=== PATIENT | female | born 1995 | race Caucasian/White ===

== ENCOUNTER 2019-10-01 12:49 | Outpatient (CLI) | payer OTHER, SELFPAY ==
--- NOTE | ~2019-10-01 | US_ITS ---
EXAMINATION: US OB /maternal detail DATE: 10/01/2019 14:08 INDICATION: Second trimester anatomic survey TECHNIQUE: Real-time ultrasound of the pelvis was performed. COMPARISON: None. FINDINGS: There is a single living fetus in variable presentation. The placenta is anterior. heart rate i s 149 beats per minute (bpm). cardiac activity and movement are noted. The amniotic fluid index is subjectively normal. The following anatomy was identified as normal: 4 chamber heart 3 vessel cord cord insertion kidneys urinary bladder stomach spine diaphragm ventricles cisterna magna cerebellum The following biometric data were obtained: Biparietal diameter (BPD): 5.1 cm; head circumference (HC): 18.7 cm; abdominal circumference (AC): 15 .6 cm; femur length (FL): 3.2 cm. These measurements are concordant. Estimated weight is 366 g +/- 55 g, which correlates with the 57th percentile when 02/15/2020 is used as estimated date of delivery. As single measurements, these parameters are each equal to the following estimated gestational ages w ith ranges of +/- 2 standard deviations: BPD: 21 weeks 4 days +/- 1 weeks 5 days. HC: 21 weeks 1 days +/- 1 weeks 3 days. AC: 20 weeks 5 days +/- 2 weeks 0 days. FL: 20 weeks 2 days +/- 1 weeks 6 days. estimated gestational age based solely on measurements from this exam is 21 weeks 0 days +/- 1 weeks 3 days. IMPRESSION: 1. Single living fetus in variable presentation. 2. Estimated weight is 366 g +/- 55 g, which correlates with the 57th percentile when 02/15/2020 is used as estimated date of delivery. Reviewed, dictated and finalized at location A. IMPRESSION: 1. Single living fetus in variable presentation. 2. Estimated weight is 366 g +/- 55 g, which correlates with the 57th per centile when 02/15/2020 is used as estimated date of delivery.
== END 2019-10-01 12:50 | disposition home or self-care (01) ==
PROVIDERS: Visit Provider Obstetrics & Gynecology
DX: Z36.9 Encounter for antenatal screening, unspecified (principal); Z3A.21 21 weeks gestation of pregnancy
CPT/HCPCS: 76805

== ENCOUNTER 2019-12-11 15:26 | Outpatient (CLI) | payer OTHER, SELFPAY ==
[2019-12-11 17:02] LABS: Hematocrit 30.9 % (37.0-47.0); Hemoglobin 10.5 g/dL (12.0-15.0)
[2019-12-11 17:13] LABS: Glucose 1 Hour PP 50gm Dose 127 mg/dL
[2019-12-11 17:48] LABS: Vitamin D 25 Hydroxy 51.4 ng/mL
[2019-12-11 17:54] LABS: HIV 1/2 Ab P24 Ag Result Negative (Negative)
[2019-12-12] MEDS: RHO(D) IMMUNE GLOBULIN 300 MCG SYRINGE IM (17:00)
== END 2019-12-11 15:27 | disposition home or self-care (01) ==
LOC: ANHLAB 15:28
PROVIDERS: PCP Obstetrics & Gynecology; Visit Provider Obstetrics & Gynecology
DX: Z34.92 Encounter for supervision of normal pregnancy, unspecified, second trimester (principal); Z3A.00 Weeks of gestation of pregnancy not specified
CPT/HCPCS: 36415; 82306; 82947; 85014; 85018; 85461; 86703; 90384; 96372; G0432; J2790

== ENCOUNTER 2020-02-07 11:48 | Outpatient (CLI) | payer OTHER, SELFPAY ==
[2020-02-07 12:18] LABS: Hematocrit 35.1 % (37.0-47.0); Hemoglobin 12.2 g/dL (12.0-15.0); Mean Corpuscular HGB Conc 34.8 g/dl (32-36); Mean Corpuscular Hemoglobin 32.3 pg (26-34); Mean Corpuscular Volume 92.9 fl (80-100); Mean Platelet Volume 11.2 fl (7.4-10.4); Platelet Count Result 158 k/mm3 (150-375); Red Blood Count 3.78 M/mm3 (4.2-5.4); Red Cell Distribution Width 15.4 % (11.5-14.5); White Blood Count 7.2 K/mm3 (4.5-10.0)
[2020-02-08 22:14] LABS: Rapid Plasma Reagin Non-Reactive (NonReactive)
== END 2020-02-07 11:49 | disposition home or self-care (01) ==
PROVIDERS: Visit Provider Obstetrics & Gynecology
DX: Z01.812 Encounter for preprocedural laboratory examination (principal); O34.218 Maternal care for other type scar from previous cesarean delivery; Z3A.39 39 weeks gestation of pregnancy
CPT/HCPCS: 36415; 85027; 86592; 86850; 86880; 86900; 86901; 86902

== ENCOUNTER 2020-02-09 05:45 | Inpatient (IN) | payer OTHER, SELFPAY ==
[2020-02-09] VITALS (43 sets, daily range): BP systolic 102–143; BP diastolic 57–120; PULSE 49–152; RESP 18; TEMP 36.1–36.7; O2SAT 96–100; BMI 26.4
[2020-02-09] MEDS: LACTATED RINGERS 1,000 ML 125 ML IV CONT (06:25)
--- NOTE | 2020-02-09 06:27 | LDADM ---
This patient, Sandra Paredes, was admitted to Labor/Delivery/Recovery 120 on 02/09/20 at 05:45. Plans for repeat section, pain management and were discussed with patient. Patient/family oriented to hospital policies and general routines including ID bracelet, bed and alarms, visiting hours, pain management, procedures, bathroom and other care routines, personal items, smoking policy, room service/diet and guest tray routines, infant security routines, and visiting hours. Patient/Family are encouraged to report perceived risks to care and to ask questions if they do not understand what they are told or what they should do. See OBIX for further documentation.
--- NOTE | 2020-02-09 07:12 | WPDANESEPPF ---
Anes - Initial Pre Proc Eval Procedure: Operation Date: 02/09/20 07:30 Proposed Procedures p Repeat Section - Nancy Lyons MD Date/Time: 02/09/20 07:12 Surgeon: Pancho Fournier MD Pre Op Diagnosis: C/S Patient Data Age: 24 Gender: F Height: 5 ft 4 in Weight: 70 kg Last Vital Signs Pulse 152 H 02/09/20 06:15 BP 114/85 02/09/20 06:15 Allergies Allergy/AdvReac Type Severity Reaction Status Date / Time No Known Allergies Allergy Verified 01/22/20 14:31 Home Medications Medication Instructions Recorded Confirmed Type PNV cmb#95-ferrous fumarate-FA 1 tablet PO DAILY 01/22/20 02/09/20 History [] Patient hx anesthesia problems: none Family hx anesthesia problems: none PMFSH Family History Family History Other No pertinent family history Social History Social History Smoking status: Former smoker Substance use: never Spiritual care concerns: No Anes - Eval Final PreProcedure Day of Procedure 02/09/20 07:12 Patient weight: overweight Heart: regular rate and rhythm Lungs: clear to auscultation Airway: Mallampati scale class II Neurological: alert and oriented Last oral intake: >/= 8 hours ASA classification: II Emergent: no Anesthetic plan: proceed Anesthesia type and monitoring: regional spinal and standard monitoring Informed Consent: The patient's anesthetic plan and its attendant risks and benefits were discussed with the patient/family/POA. Questions were solicited and answers provided to the satisfaction of the patient/family/POA.
[2020-02-09] MEDS: ONDANSETRON INJ 4 MG/2 ML VIAL IV PUSH (07:25)
[2020-02-09] MEDS: FAMOTIDINE 20 MG/2 ML VIAL IV PUSH (07:25)
--- NOTE | 2020-02-09 07:26 | P.HP_ITS ---
H&P: HPI History of Present Illness Date/Time: 02/09/20 07:26 Chief complaint: C/S Narrative: Sandra Paredes is a 24 year old female at 39 wks for repeat csection. has been uncomplicated. labs: A-, RPR-, HIV-, Rubella nonimmune, HBSAg -, GBS -. [facility] Surgical History Surgical History (Updated 02/09/20 @ 07:30 by Nancy Lyons MD) History of Family History Family History (Updated 02/09/20 @ 07:28 by Nancy Lyons MD) Grandparent Diabetes mellitus Father Cerebrovascular accident Other No pertinent family history Social History Social History Smoking status: Former smoker Substance use: never Spiritual care concerns: No Meds Home Medications and Allergies Home Medications Medication Instructions Recorded Confirmed Type PNV cmb#95-ferrous fumarate-FA 1 tablet PO DAILY 01/22/20 02/09/20 History [] Allergies Allergy/AdvReac Type Severity Reaction Status Date / Time No Known Allergies Allergy Verified 01/22/20 14:31 Vital Signs Vital Signs - 24 hr 02/09/20 06:15 Pulse Rate 152 H Blood Pressure 114/85 Exam Const: General: comfortable and no acute distress Resp: Effort & Inspection: normal respiratory effort Auscultation: clear to auscultation bilaterally Cardio: Rate: regular rate Rhythm: regular rhythm GI: GI Palp: No Tenderness to palpation present (GI) and Yes Other GI palpation findings present (gravid with FH 41 cm) Assessment and Plan Assessment and plan (1) 39 weeks gestation of : Code(s): Z3A.39 - 39 weeks gestation of Status: Acute Assessment and Plan: Plan to proceed with repeat LTCS
[2020-02-09] MEDS: ceFAZolin 2 GM/D5W 50 ML 2 GM/50 ML BAG IVPB (07:30)
--- NOTE | 2020-02-09 07:35 | WPDHPUPDATE1 ---
History and Physical Update Update Date/Time: 02/09/20 07:35 History and Physical has been reviewed, including an updated exam of the patient. There are NO changes in the patient's condition. Risks, benefits, and alternatives have been discussed and questions answered. Patient agrees to proceed with procedure.
--- NOTE | 2020-02-09 08:39 | P.OP_ITS ---
Procedure Note - Detailed Date of procedure: 02/09/20 Pre-op diagnosis: C/S Post-op diagnosis: same Procedure performed: repeat LTCS Description of procedure: The patient is taken to the operating room and placed in the dorsal supine position with a leftward tilt. Once anesthesia was deemed adequate a Pfannenstiel skin incision is made with the scalpel. Incision is carried down to the fascia which was nicked in the midline. The incision is extended laterally using Rios scissors. Ochsner was used to tent the fascia which was then dissected off using sharp dissection due to adhesions. The rectus muscles are in the midline, the peritoneum was tented, and the peritoneum was entered using Metzenbaum scissors. The incision is extended with blunt traction. The bladder blade is placed the lower uterine segment was incised above the previous bladder flap in a transverse fashion with the scalpel. Once the amniotic cavity is entered membranes are ruptured. Clear fluid is noted. The incision is extended laterally using blunt traction. The 's head is delivered through the incision while the assistant professor of anthropology applied fundal pressure. Nuchal cord x1 is reduced. The remainder of the infant is delivered. The cord is clamped and cut and the infant handed to the waiting nursery nurse. The placenta is removed using manual traction after cord blood is taken. The uterus is cleared of all clots and debris and exteriorized. The uterine incision was closed using 0 Monocryl in a running locked fashion, imbricating layer is used with same suture, and hemostasis was obtained using 2 additional [id number] sutures. The cul-de-sac is irrigated and the uterus is returned to the abdomen. The gutters are irrigated. The incision was again inspected and noted to be hemostatic. The fascia was closed using 0 Vicryl in a running fashion. The subcutaneous tissues are irrigated and made hemostatic using Bovie cautery. Skin incisions closed using Tom Vicryl in a subcuticular fashion. Dermaflex was placed over the incision. Sponge,instrument, and needle counts are correct per OR staff. Anesthesia: spinal Surgeon: Nancy Lyons MD Estimated blood loss (mL): 770 Drains: Yes (irwin) Packing: No Pathology: none sent Complications: No immediate complications Condition: stable Disposition: PACU Findings: female 8#1oz; 9/9 scores; normal appearing tubes, ovaries, and uterus
--- NOTE | 2020-02-09 08:45 | PM.OBDSVD ---
DS: Admitting Diagnosis Admitting Diagnosis Admitting Diagnosis: previous C/S declining trial of labor IUP 39 wks DS: Discharge Diagnosis Discharge Diagnosis (1) delivery delivered: Code(s): O82 - Encounter for delivery without indication Status: Acute (2) History of : Code(s): Z98.891 - History of uterine scar from previous surgery Status: Acute (3) 39 weeks gestation of : Code(s): Z3A.39 - 39 weeks gestation of Status: Acute OB - DS: Summary OB Procedures : Ultrasound OB Procedures Intrapartum: low cervical, transverse OB Procedures: : None Peripartum Data Delivery Method: Section Procedures: Procedures Operation Date: 02/09/20 07:30 <No data on this case meets the specified criteria> complications: none Status at Discharge Functional status at discharge: independent ambulation Overall status at discharge: patient is progressing back to baseline Time Spent with Patient Time attestation: Total time spent providing and/or coordinating discharge services: Discharge Plan Discharge Attending physician on discharge: Nancy Lyons Discharging Clinician: Nancy Lyons Anticipated Discharge Date/Time: 02/11/20 07:34 Patient Disposition: Home, Self-Care Activity: may shower, may drive after 2 weeks and pelvic rest Diet: regular Patient Instructions: Antibiotic Form Stand Alone Forms: General Discharge Information Follow-up/Referrals: Nancy Lyons MD [Physician] - 1 Week Discharge Medications: New hydrocodone-acetaminophen 5-325 mg Tablet 1 tab PO Q3H PRN (Reason: Moderate Pain (4-6)) Qty: 30 RF: 0 Continued PNV cmb#95-ferrous fumarate-FA [] 28 mg iron- 800 mcg Tablet 1 tablet PO DAILY RF: 0 Date of admission: 02/09/20 05:45 Primary Care Provider: PHYSICIAN,PRODUCTION MANAGER Admitting Provider: Pancho Fournier Attending physician on admission: Pancho Fournier Condition: Stable
[2020-02-09] MEDS: OXYTOCIN 30 UNITS/NS 500 ML 30 UNITS/500 ML BAG 125 UNITS IV CONT (08:50)
[2020-02-09] MEDS: DEXTROSE 5%/0.45% SOD CHL 1,000 ML 125 ML IV CONT (13:16)
[2020-02-09] MEDS: SIMETHICONE 80 MG TAB.CHEW PO (15:05)
[2020-02-09] MEDS: HYDROcodone/acetaminophen (*CRX) 10-325 MG TABLET 1 TAB PO (15:05)
[2020-02-09] MEDS: HYDROcodone/acetaminophen (*CRX) 5-325 MG TABLET 1 TAB PO (21:01)
[2020-02-10 00:15] VITALS: BP 107/67; PULSE 77; RESP 17; TEMP 36.8; O2SAT 99
[2020-02-10] MEDS: HYDROcodone/acetaminophen (*CRX) 5-325 MG TABLET 1 TAB PO ×4 (00:43→20:59)
[2020-02-10 04:38] VITALS: BP 114/73; PULSE 71; RESP 16; TEMP 36.6; O2SAT 99
[2020-02-10 05:05] LABS: Basophils Percent Auto 0.3 % (0.2-1.2); Eosinophils Absolute Auto 0.1 K/mm3 (0-0.3); Eosinophils Percent Auto 1.1 % (0-4.4); Hematocrit 27.8 % (37.0-47.0); Hemoglobin 9.4 g/dL (12.0-15.0); Immature Granulocyte Absolute 0.04 K/mm3 (0.00-0.031); Immature Granulocyte Percent A 0.5 % (0-0.5); Lymphocytes Absolute Auto 1.83 K/mm3 (0.9-3.2); Lymphocytes Percent Auto 24.2 % (18.3-44.2); Mean Corpuscular HGB Conc 33.8 g/dl (32-36); Mean Corpuscular Hemoglobin 31.9 pg (26-34); Mean Corpuscular Volume 94.2 fl (80-100); Mean Platelet Volume 10.9 fl (7.4-10.4); Monocytes Absolute Auto 0.7 K/mm3 (0.1-0.6); Neutrophils Absolute Auto 4.9 K/mm3 (1.3-6.7); Neutrophils Percent Auto 64.9 % (45.5-73.1); Platelet Count Result 107 k/mm3 (150-375); Red Blood Count 2.95 M/mm3 (4.2-5.4); Red Cell Distribution Width 15.5 % (11.5-14.5); White Blood Count 7.6 K/mm3 (4.5-10.0)
--- NOTE | 2020-02-10 05:35 | PC.NURSE ---
Found infant, mother, and father all asleep in bed. Spoke with parents about importance of not cosleeping, dangers associated with cosleeping, and placing baby in crib to sleep. Mother verbalizes understanding and desire to avoid cosleeping.
[2020-02-10] MEDS: DOCUSATE SODIUM 100 MG CAPSULE PO ×3 (07:18→16:55)
[2020-02-10] MEDS: SIMETHICONE 80 MG TAB.CHEW PO ×3 (07:19→13:57)
[2020-02-10] MEDS: IBUPROFEN 600 MG TABLET PO ×3 (07:19→20:58)
--- NOTE | 2020-02-10 07:44 | P.PNOB_ITS ---
OB - PN: Subj Subjective Date/time seen: 02/10/20 07:44 Patient comments: no complaints baby status: doing well OB - PN: Obj Data Labs CBC & Chem 7: 02/10/20 04:32 Labs: Laboratory Results - last 24 hr 02/10/20 02/10/20 04:32 04:32 WBC 7.6 RBC 2.95 L Hgb 9.4 L Hct 27.8 L MCV 94.2 MCH 31.9 MCHC 33.8 RDW 15.5 H Plt Count 107 L MPV 10.9 H Immature Gran % (Auto) 0.5 Neut % (Auto) 64.9 Lymph % (Auto) 24.2 [place] % (Auto) 9.0 H Eos % (Auto) 1.1 Baso % (Auto) 0.3 Lymph # (Auto) 1.83 [place] # (Auto) 0.7 H Eos # (Auto) 0.1 Baso # (Auto) 0.0 Abs Immat Gran (auto) 0.04 H Absolute Neuts (auto) 4.9 Absolute Nucleated RBC 0.0 Nucleated RBC % 0.0 Blood Type A Negative Antibody Screen TNP Screen Negative Baby's Blood Type A pos Baby's ANITA Negative Doses of RhIg Required 1 OB - PN A/P Plan day: 1 Plan: routine care Time Spent With Patient Time: Total time spent is greater than 50% in coordination of care (as documented) at patient's floor/unit and/or counseling patient: Exam GI: Inspection: incision (c/d/i) : Bimanual exam- vagina & uterus: other (Uterus firm, nt @U)
--- NOTE | 2020-02-10 07:52 | WPDANLDPN2 ---
Anes-Prog Note L&D Date/Time: 02/10/20 07:52 Comfortable throughout: section Neuraxial method: spinal Epidural/Spinal procedure site: clean & non-tender Neuro status: Neuro function grossly intact. Cardiovascular status: normal Respiratory status: normal Airway patency: baseline Mental status: baseline Post-Op hydration status: normal Vital Signs: Last Vital Signs Temp 36.6 C 02/10/20 04:38 Pulse 71 02/10/20 04:38 Resp 16 02/10/20 04:38 BP 114/73 02/10/20 04:38 Pulse Ox 99 02/10/20 04:38 Pain score (VAS): 0 I/O: Intake & Output 02/09/20 02/09/20 02/10/20 15:59 23:59 07:59 Intake Total 150 Output Total 191 269 7470 Balance -30 200 -1325 Post-procedural complaints: none Patient feedback: Patient satisfied with anesthetic care.
[2020-02-10 08:05] VITALS: BP 118/68; PULSE 80; RESP 18; TEMP 36.2; O2SAT 98
[2020-02-10] MEDS: POLYSACCHARIDE IRON COMPLEX 150 MG CAPSULE PO ×3 (08:18→16:55)
[2020-02-10] MEDS: HYDROcodone/acetaminophen (*CRX) 10-325 MG TABLET 1 TAB PO ×2 (11:09→16:55)
[2020-02-10] MEDS: RHO(D) IMMUNE GLOBULIN 300 MCG SYRINGE IM (16:54)
[2020-02-10 20:50] VITALS: BP 124/71; PULSE 72; RESP 16; TEMP 36.5; O2SAT 99
[2020-02-11] MEDS: IBUPROFEN 600 MG TABLET PO ×2 (05:26→12:03)
[2020-02-11] MEDS: HYDROcodone/acetaminophen (*CRX) 10-325 MG TABLET 1 TAB PO ×3 (05:27→12:03)
--- NOTE | 2020-02-11 07:33 | P.PNOB_ITS ---
OB - PN: Subj Subjective Date/time seen: 02/11/20 07:33 Patient comments: no complaints, incisional pain and tolerating diet [place] baby status: doing well OB - PN: Obj Data Labs CBC & Chem 7: 02/10/20 04:32 Labs: Laboratory Results - last 24 hr 02/10/20 04:32 Blood Type A Negative Antibody Screen TNP Screen Negative Baby's Blood Type A pos Baby's ANITA Negative Doses of RhIg Required 1 OB - PN A/P Plan day: 2 Plan: routine care, discharge home and other (plans Depoprovera) Time Spent With Patient Time: Total time spent is greater than 50% in coordination of care (as documented) at patient's floor/unit and/or counseling patient: Exam Narrative: Exam Narrative: inc c/d/i : Bimanual exam- vagina & uterus: other (Uterus firm, nt @U)
[2020-02-11 08:00] VITALS: BP 122/88; PULSE 95; RESP 16; RESP 18; TEMP 36.5; O2SAT 99
[2020-02-11] MEDS: POLYSACCHARIDE IRON COMPLEX 150 MG CAPSULE PO (09:09)
[2020-02-11] MEDS: DOCUSATE SODIUM 100 MG CAPSULE PO (09:09)
[2020-02-11] MEDS: SIMETHICONE 80 MG TAB.CHEW PO (09:09)
[2020-02-11] MEDS: medroxyPROGESTERone ACETATE IM 150 MG/ML SYR IM (11:48)
[2020-02-11] MEDS: MEASLES,MUMPS,RUBELLA VACCINE 0.5 ML VIAL SUB-Q (11:55)
[2020-02-12 08:33] VITALS: BP 131/80; PULSE 82; RESP 20; TEMP 36.9; O2SAT 100
== END 2020-02-11 12:10 | disposition home or self-care (01) | DRG 540 ==
LOC: ANHLDR 09:28 → ANHOB2 02-11 07:34 → ANHLDR 02-13 10:01 → ANHOB2 02-13 10:01
PROVIDERS: Admitting Provider Obstetrics & Gynecology; Visit Provider Obstetrics & Gynecology Gynecology
PROC: 10D00Z1 Extraction of Products of Conception, Low, Open Approach (ICD-10-PCS; CPT 59514; principal; 2020-02-09 07:30)
DX: O34.211 Maternal care for low transverse scar from previous cesarean delivery (principal); Z37.0 Single live birth; Z3A.39 39 weeks gestation of pregnancy; O69.81X0 Labor and delivery complicated by cord around neck, without compression, not applicable or unspecified
CPT/HCPCS: 36415; 85025; 85461; 90384; 90710; A9270; J0131; J0690; J1050; J1200; J1885; J2274; J2405; J2590; J2790; J7120